=== PATIENT | female | born 1985 ===

== ENCOUNTER 2018-01-23 11:49 | Emergency (ER) | payer OTHER ==
[2018-01-23] MEDS ORDERED: Sodium Chloride 0.9% 1,000 ML IV SCH (12:30)
[2018-01-23 13:05] LABS: BASO # 0.1 K/uL (0.0-0.2); BASO % 0.6 % (0.0-2.0); EOS # 0.1 K/uL (0.0-0.7); EOS % 1.3 % (0.0-4.0); HEMOGLOBIN 13.8 g/dL (12.0-16.0); LYMPH # 2.7 K/uL (1.0-4.3); LYMPH % 28.8 % (20.0-40.0); MEAN CELL VOLUME 87.3 fl (81.0-99.0); MEAN CORPUSCULAR HEMOGLOBIN 29.9 pg (27.0-31.0); MEAN CORPUSCULAR HGB CONC 34.2 g/dL (33.0-37.0); MEAN PLATELET VOLUME 8.3 fl (7.2-11.7); MONO # 0.6 K/uL (0.0-0.8); MONO % 6.9 % (0.0-10.0); NEUT # 5.8 K/uL (1.8-7.0); NEUT % 62.4 % (50.0-75.0); NRBC % 0.1 % (0.0-0.0); RBC 4.62 Mil/uL (3.80-5.20); RED CELL DISTRIBUTION WIDTH 12.9 % (11.5-14.5); WHITE BLOOD COUNT 9.2 K/uL (4.8-10.8)
--- NOTE | 2018-01-23 13:07 | ED PDOC ---
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 She was at work standing when she felt sudden onset of dizziness and weakness and called EMS. Patient also now reports a 6/10 frontal headache that was not present at onset of symptoms. There is a history of similar symptoms 4 years ago that resolved spontaneously. She has not taken any medications for symptoms. Currently menstruating. Denies fever, chills, visual changes, numbness, photophobia, phonophobia, recent illness, abdominal pain, chest pain, shortness of breath, cough, nausea, vomiting and diarrhea. PMD: none provided Past Medical History Reviewed: Historical Data, Nursing Documentation, Vital Signs - Medical History PMH: Diabetes (gestational) - Surgical History Surgical History: (x 1) - Family History Family History: States: Unknown Family Hx - Social History Current smoker - smoking cessation education provided: No Alcohol: None Drugs: Denies - Home Medications Home Medications: Ambulatory Orders Medication Instructions Recorded Meclizine [Meclizine*] 25 mg PO Q6 PRN #12 tab 01/23/18 Naproxen 500 mg PO BID PRN #20 tab 01/23/18 - Allergies Allergies/Adverse Reactions: Allergies Allergy/AdvReac Type Severity Reaction Status Date / Time No Known Allergies Allergy Verified 01/23/18 11:54 Review of Systems ROS Statement: Except As Marked, All Systems Reviewed And Found Negative Constitutional: Positive for: Weakness, Other (near syncope) Neurological: Positive for: Headache, Dizziness Physical Exam - Reviewed Nursing Documentation Reviewed: Yes Vital Signs Reviewed: Yes - Physical Exam Comments: GENERALIZED APPEARANCE:Patient is awake, alert, oriented x3 in no acute distress. Resting comfortably. SKIN: Warm, dry; (-) cyanosis. HEAD: (-) scalp swelling or tenderness. EYES: (-) conjunctival pallor. EOMI and painless. ENMT: Mucous membranes moist. TMs are non bulging, non erythematous. Pharynx is clear, uvula midline (-) erythema (-) exudate. NECK: Supple, FROM (-) tenderness, (-) stiffness, (-) lymphadenopathy. CHEST AND RESPIRATORY: (-) rales, (-) rhonchi, (-) wheezes; breath sounds equal bilaterally. Respirations even and nonlabored, speaking in full sentences. HEART AND CARDIOVASCULAR: regular rate and rhythm ABDOMEN AND GI: Soft; bowel sounds active x4(-) distention, (-) tenderness, (-) rebound, (-) guarding, (-) palpable masses, (-) CVA tenderness. EXTREMITIES: (-) deformity; (-) edema. Distal pulses: present. NEURO AND PSYCH: Mental status as above. 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 Strength symmetric. Gait: normal. Cerebellar tests intact. - Laboratory Results Result Diagrams: 01/23/18 12:53 01/23/18 12:53 Urine POC: Negative - ECG ECG: Positive for: Interpreted By Me, Viewed By Me ECG Rhythm: Positive for: Sinus Rhythm (normal ). Negative for: ST/T Changes Rate: 66 O2 Sat by Pulse Oximetry: 100 (RA) Pulse Ox Interpretation: Normal Medical Decision Making Medical Decision Makin:17 Impression: dizziness, headache, near syncope Initial Plan: --Ct head --EKG --CMP --U preg --U dip --CBC --Antivert 25 mg PO --NS IV --Tylenol 650 mg PO Udip reveals negative , moderate blood and small billirubin. Protein is 30. Hematuria is clinically insignificant as patient is currently menstruating. EKG: NSR at 66 bpm; no ST elevation; no ectopy; QTC is 425. 1330 Labs reviewed. CBC unremarkable, H&H stable. No elevation of WBCs. CMP demonstrates slight elevation of LFTs - patient notified to follow up with PMD/ clinic for further evaluation. CT reviewed, radiology report follows Date of service: 01/23/2018 PROCEDURE: CT HEAD WITHOUT CONTRAST. HISTORY: dizziness, near syncope, headache COMPARISON: None available. TECHNIQUE: Axial computed tomography images were obtained through the head/brain without intravenous contrast. Radiation dose: Total exam DLP = 821.57 mGy-cm. This CT exam was performed using one or more of the following dose reduction techniques: Automated exposure control, adjustment of the mA and/or kV according to patient size, and/or use of iterative reconstruction technique. FINDINGS: HEMORRHAGE: No intracranial hemorrhage. BRAIN: Normal perry-white matter differentiation and density are appreciated throughout the cerebrum and cerebellum with the brainstem appearing unremarkable as well. There is no mass effect. There is no suspicious extra-axial fluid collection and the midline brain anatomy appears diffusely unremarkable. VENTRICLES: Unremarkable. No hydrocephalus. CALVARIUM: Unremarkable. PARANASAL SINUSES: Unremarkable as visualized. No significant inflammatory changes. MASTOID AIR CELLS: Unremarkable as visualized. No inflammatory changes. OTHER FINDINGS: None. IMPRESSION: Unremarkable noncontrast head CT. Follow-up CT or MRI are available if clinically warranted. 1430 Patient resting comfortably in ED stretcher and reports improvement of symptoms at this time. IVF infusing. 1520 On re-evaluation, patient reports resolution of symptoms. On exam, patient remains AAOx3, in no acute distress. Lungs clear to auscultation, cardiac RRR, abdomen soft, non-tender, repeat neuro exam shows no focal findings. Gait steady in ED. VSS, stable for discharge. Lab/Diagnostic results d/w the patient in great detail. Diagnosis of near syncope, headache, dizziness d/w the patient. Based on history, exam and diagnostic results, plan will be for outpatient follow up. Patient instructed to follow-up with pmd / referral provided / the clinic in 1- 2 days without fail. Advised to take medication as prescribed. Return to the emergency room at any time for any new or worsening symptoms. Patient states she fully agrees with and understands discharge instructions. States that she agrees with the plan and disposition. Verbalized and repeated discharge instructions and plan. I have given the patient opportunity to ask any additional questions. ---- Scribe Attestation: Documented by Nadine Conklin, acting as a scribe for Aidee Mancia PA-C Provider Scribe Attestation: All medical record entries made by the Scribe were at my direction and personally dictated by me. I have reviewed the chart and agree that the record accurately reflects my personal performance of the history, physical exam, medical decision making, and the department course for this patient. I have also personally directed, reviewed, and agree with the discharge instructions and disposition. Disposition - Clinical Impression Clinical Impression: Dizziness, Near syncope, Headache - Patient ED Disposition Is Patient to be Admitted: No Counseled Patient/Family Regarding: Studies Performed, Diagnosis, Need For Followup, Rx Given - Disposition Referrals: [facility] [Outside] Disposition: Routine/Home Disposition Time: 15:25 Condition: STABLE Additional Instructions: Follow up with clinic for further evaluation. Return to ED with any new or worsening symptoms. Take medication as needed for symptoms. The emergency medical care you received today was directed at your acute symptoms. If you were prescribed any medication, please fill it and take as directed. It may take several days for your symptoms to resolve. Return to the Emergency Department if your symptoms worsen, do not improve, or if you have any other problems. Please contact your doctor in 2 days for re-evaluation and follow up / or call one of the physicians/clinics you have been referred to that are listed on the Patient Visit Information form that is included in your discharge packet. Bring any paperwork you were given at discharge with you along with any medications you are taking to your follow up visit. Our treatment cannot replace ongoing medical care by a primary care provider (PCP) outside of the emergency department. Prescriptions: Meclizine [Meclizine*] 25 mg PO Q6 PRN #12 tab PRN Reason: Dizziness Naproxen 500 mg PO BID PRN #20 tab PRN Reason: Headache Instructions: Headache, Adult, Dizziness, Nonvertigo, (DC), Near Fainting Forms: [employer] (Turkish) Print Language: ECUADOREAN - POA Present On Arrival: None Results - Lab Results Lab Results: 01/23/18 01/23/18 01/23/18 12:53 12:53 11:56 WBC 9.2 RBC 4.62 Hgb 13.8 Hct 40.3 MCV 87.3 MCH 29.9 MCHC 34.2 RDW 12.9 Plt Count 305 MPV 8.3 Neut % (Auto) 62.4 Lymph % (Auto) 28.8 [place] % (Auto) 6.9 Eos % (Auto) 1.3 Baso % (Auto) 0.6 Neut # (Auto) 5.8 Lymph # (Auto) 2.7 [place] # (Auto) 0.6 Eos # (Auto) 0.1 Baso # (Auto) 0.1 Sodium 144 Potassium 4.0 Chloride 107 Carbon Dioxide 27 Anion Gap 14 BUN 20 H Creatinine 0.9 Est GFR ( Amer) > 60 Est GFR (Non-Af Amer) > 60 POC Glucose (mg/dL) 97 Random Glucose 87 Calcium 9.5 Total Bilirubin 0.7 AST 73 H ALT 82 H Alkaline Phosphatase 72 Total Protein 7.8 Albumin 4.2 Globulin 3.6 Albumin/Globulin Ratio 1.2
[2018-01-23 13:11] LABS: ALB/GLOB RATIO 1.2 (1.0-2.1); ALBUMIN 4.2 g/dL (3.5-5.0); ALT/SGPT 82 U/L (9-52); AST/SGOT 73 U/L (14-36); BLOOD UREA NITROGEN 20 mg/dl (7-17); CALCIUM 9.5 mg/dL (8.4-10.2); GFR NON-AFRICAN AMERICAN > 60
--- NOTE | 2018-01-23 13:16 | CT ---
Date of service: 01/23/2018 PROCEDURE: CT HEAD WITHOUT CONTRAST. HISTORY: dizziness, near syncope, headache COMPARISON: None available. TECHNIQUE: Axial computed tomography images were obtained through the head/brain without intravenous contrast. Radiation dose: Total exam DLP = 821.57 mGy-cm. This CT exam was performed using one or more of the following dose reduction techniques: Automated exposure control, adjustment of the mA and/or kV according to patient size, and/or use of iterative reconstruction technique. FINDINGS: HEMORRHAGE: No intracranial hemorrhage. BRAIN: Normal perry-white matter differentiation and density are appreciated throughout the cerebrum and cerebellum with the brainstem appearing unremarkable as well. There is no mass effect. There is no suspicious extra-axial fluid collection and the midline brain anatomy appears diffusely unremarkable. VENTRICLES: Unremarkable. No hydrocephalus. CALVARIUM: Unremarkable. PARANASAL SINUSES: Unremarkable as visualized. No significant inflammatory changes. MASTOID AIR CELLS: Unremarkable as visualized. No inflammatory changes. OTHER FINDINGS: None. IMPRESSION: Unremarkable noncontrast head CT. Follow-up CT or MRI are available if clinically warranted.
[2018-01-23 15:33] VITALS: O2SAT 100
[2018-01-23 15:34] VITALS: TEMP 98
[2018-01-23 16:47] VITALS: BP 108/68; RESP 18
--- NOTE | 2018-01-23 18:15 | CARD ---
APPROVED REPORT Date of service: 01/23/2018 <Conclusion> Normal sinus rhythm Normal ECG
[2018-01-25 14:41] VITALS: PULSE 66
== END 2018-01-23 16:40 | disposition home or self-care (01) ==
LOC: H.ER 11:49
DX: R55 Syncope and collapse (principal); R51 Headache
CPT/HCPCS: 70450; 80053; 81025; 82948; 85025; 93005; 99285; J7030